=== PATIENT | female | born 1935 | race Caucasian/White ===

== ENCOUNTER 2020-08-24 14:28 | Outpatient (CLI) | payer MEDICARE, SELFPAY ==
--- NOTE | 2020-08-24 14:15 | USCV_ITS ---
Humaira Marquez Age: 84 Gender: F : 1935 Exam Date: 08/24/2020 14:47 Ordering Phys: Nikunj Castro M.D ([email or web address]) Technologist: Mercedes Miller Exam Location: [facility] [place] Indication: short of breath, right carotid bruit Risk Factors: Unknown Previous Vascular Surgery: None Right Brachial BP: / Left Brachial BP: / Right Left Velocity (cm/s) Spectral Plaque Velocity (cm/s) Spectral Plaque Syst/Diast Broadening Syst/Diast Broadening 80.00/ 13.20 Prox CCA 61.70 / 11.10 68.80/ 10.10 Mid CCA 63.70 / 14.80 76.90/ 10.10 Hetro Distal CCA 69.10 / 14.00 283.60/58.80 Oren Prox ICA 65.10 / 18.70 66.10/ 7.50 Mid ICA 75.00 / 18.70 66.70/ 6.30 Distal ICA 93.70 / 30.90 96.30 Oren ECA 79.80 3.55 ICA/CCA 1.36 Antegrade Vertebral Antegrade 76.20/ 14.00 cm/s 68.90/ 15.20 cm/s Tri Subclavian Tri 137.2 99.30 0 FINDINGS Heavy heterogeneous plaques at the right bifurcation and proximal internal carotid artery on the right side. Minimal plaques of the left bifurcation and proximal internal carotid artery. Antegrade flow in the vertebral arteries bilaterally. Normal Doppler flow velocities in the external carotid arteries bilaterally. Near normal Doppler flow velocities in the subclavian arteries bilaterally. CONCLUSIONS Heavy heterogeneous plaques at the right bifurcation and proximal internal carotid artery on the right side with the Doppler features, consistent with greater than 70% stenosis. Minimal plaques at the left bifurcation and proximal internal carotid artery, suggesting less than 50% stenosis. No similar previous studies are available for comparison Dr Gerhard Morris MD [facility] (Electronically Signed) Final Date: 27 August 2020 14:18 S
== END 2020-08-24 14:29 | disposition home or self-care (01) ==
LOC: RAD 14:33
PROVIDERS: PCP Nurse Practitioner Family; Visit Provider Internal Medicine
DX: R06.02 Shortness of breath (principal); R09.89 Other specified symptoms and signs involving the circulatory and respiratory systems; I65.23 Occlusion and stenosis of bilateral carotid arteries
CPT/HCPCS: 93880

== ENCOUNTER 2021-02-02 13:31 | Outpatient (CLI) | payer MEDICARE, SELFPAY ==
--- NOTE | 2021-02-02 14:00 | CT_ITS ---
WS: [id number] CT ANGIOGRAM CAROTID ARTERIES HISTORY: I65.29 - Occlusion and stenosis of unspecified carotid arteries. TECHNIQUE: CT angiogram is performed of the carotid arteries. During arterial injection imaging is ob tained from the skull base to the aortic arch in 1.25 mm imaging. Coronal and sagittal reformats are submitted, MIP imaging also reviewed. Additional multiplanar reformats of the carotid arteries are sierra bmitted. NASCET criteria utilized. All CT scans at [facility] use at least one of these dose optimization techniques: automated exposure control; mA and/or kV adjustment per patient size (includ es targeted exams where dose is matched to clinical indication); or iterative reconstruction. CONTRAST: Omnipaque 350; 95 mL IV. DLP: 760.44 mGycm COMPARISON: None available. Right carotid: Common carotid artery: Arises normally from the innominate artery. No significant plaque or stenosis. Internal carotid artery: Small amount of plaque in intimal thickening at the carotid bifurcation. The re is a very high-grade stenosis involving the origin of the RIGHT ICA. There is soft tissue plaque a nd calcification. Greater than 70% stenosis. External carotid artery: Patent. Left carotid: Common carotid artery: Arises normally from the aortic arch. No significant stenosis. Internal carotid artery: Small amount of plaque at the carotid bifurcation. No high-grade stenosis. External carotid artery: Patent. Right vertebral artery: Unremarkable. Left vertebral artery: Unremarkable. Arises normally from the left subclavian artery. Subclavian arteries: No stenosis or abnormality identified. Upper thorax: Normal. Thyroid gland: Subcentimeter RIGHT thyroid nodules. The largest measures 7 mm. Osseous structures: C4 anterolisthesis by 3 mm. Skull base: Negative. CT/CT angio neck [id number] IMPRESSION: 1. High-grade stenosis origin RIGHT ICA greater than 70%. 2. No significant stenosis LEFT ICA.
[2021-02-02] MEDS: iohexol 350 mg/mL 100 mL Btl IV (15:16)
[2021-02-02 15:39] LABS: Blood Urea Nitrogen 16 mg/dL (8-23)
== END 2021-02-02 13:32 | disposition home or self-care (01) ==
PROVIDERS: PCP Nurse Practitioner Family; Visit Provider Internal Medicine
DX: I65.21 Occlusion and stenosis of right carotid artery (principal)
CPT/HCPCS: 70498; 82565; 84520; Q9967

== ENCOUNTER 2021-12-01 14:55 | Emergency (ER) | payer MEDICARE, SELFPAY ==
[2021-12-01] VITALS (16 sets, daily range): BP systolic 132–178; BP diastolic 61–90; PULSE 82–98; RESP 12–26; TEMP 36.6–36.8; O2SAT 92–97; BMI 42.9
--- NOTE | 2021-12-01 15:46 | ED_ITS ---
Documented by User: Radha Ramirez MD 12/01/21 22:48 HPI - General Adult General: Chief complaint: General Medical Stated complaint: Ochoa rooney sent for anemia Time Seen by Provider: 12/01/21 15:46 History of Present Illness: Patient is an 86-year-old female with history of hypertension, CAD, hyperlipidemia, CHF who presents emergency room with complaints of abnormal blood work. Patient had routine blood work done recently and was found to have a hemoglobin of 7. Patient was then told to come to the emergency room. Denies any melena/hematochezia. Over the last 2 to 3 weeks, patient admits she has become increasingly more short of breath with exertion. Patient denies any chest pain or short of breath at rest. Patient denies any fever/chills, cough, runny nose sore throat, abdominal complaints, diarrhea, melena/hematochezia. No complaints at this time. Onset:2 weeks ago Duration: ongoing Location:home Severity:moderate Associated symptoms: Reports dyspnea; Deny chest pain, nausea, rash, palpitations or vomiting Review of Systems Const: Denies: fever(s) or chills Eyes: Denies: change in vision ENMT: Denies: mouth pain Card: Reports: dyspnea on exertion; Denies: chest pain or palpitations Resp: Reports: dyspnea; Denies: non-productive cough GI: Denies: abdominal pain, nausea, vomiting or diarrhea : Denies: dysuria Musc: Denies: extremity pain Skin/Breast: Denies: rash or new lesions Neuro: Denies: weakness in extremities Psych: Reports: other (Normal mood) Aayush/Lymph: Denies: easy bruising [facility] ED PFSH: Medical History Pulmonary embolism Family History Mother Hypertension Father CAD (coronary artery disease) Social History Smoking and tobacco status: never smoked Alcohol intake: never Physical Exam Const: COMMON NORMALS: alert HENMT: COMMON NORMALS: atraumatic HEAD & SCALP: atraumatic MOUTH: moist mucous membranes not abnormal Eye: COMMON NORMALS: EOMs intact bilaterally and conjunctivae normal CONJUNCTIVA: Yes conjunctivae normal Neck/C-Spine: COMMON NORMALS: full ROM and supple Resp: COMMON NORMALS: normal respiratory effort and clear to auscultation bilaterally AUSCULTATION: clear to auscultation bilaterally Cardio: COMMON NORMALS: regular rate RATE: regular rate GI: COMMON NORMALS: Soft to palpation and non-tender PALPATION: Yes Soft to palpation OTHER: No focal TTP. NO guarding rebound, guarding, rigidity. No CVA tenderness to percussion. Neg Moffett/Neg McBurney's point tenderness, no suprabupic tenderness to palpation. Extremity: COMMON NORMALS: full ROM Neuro: SENSORIUM/ORIENTATION: Yes alert MOTOR EXAM: No Abnormal motor strength present and Other motor observations present (no focal motor deficits) Psych: COMMON NORMALS: speech normal SPEECH: Yes normal speech MOOD & AFFECT: Yes euthymic mood Course Vital Signs: Vital signs: Vital Signs Temperature 98.2 F 12/01/21 21:24 Pulse Rate 88 12/01/21 23:57 Respiratory Rate 16 12/01/21 23:57 Blood Pressure 178/69 12/01/21 23:57 Pulse Oximetry 95 12/01/21 23:57 Oxygen Delivery Me thod 12/01/21 23:09 MDM - General Adult Medical Decision Making Patient is an 86-year-old female with history of hypertension, CAD, hyperlipidemia, CHF who presents emergency room with complaints of abnormal blood work and hemoglobin of 7. Today patient's hemoglobin 7.0. Creatinine 1.2 similar to baseline. Rectal exam is negative for any signs of Hemoccult positive stool. At the present time, it is unclear what is the source of the patient's anemia. Patient received 2 units of blood transfusion. Troponin x2 with delta less than 5. EKG is non-ischemic. I have given patient follow up with our block and case maker to be seen by our outpatient by Dr. Cowan for an EGD. Patient aware of a call from our block and case maker to schedule for appointment(s) and verbalizes understanding of the importance of following up. Rx iron for anemia Disposition: Discharge. Patient counseled regarding diagnostic impression, treatment plan. Patient given ED strict return precautions to return for continuation, worsening, or development of new symptoms. Instructed to f/u w/ PCP regarding symptoms today. Patient verbalized understanding. Lab Data : 12/01/21 15:40 12/01/21 15:40 Laboratory Results WBC 7.6 10^3/uL (4.0-10.0) 12/01/21 15:40 RBC 3.23 10^6/uL (4.1-5.3) L 12/01/21 15:40 Hgb 7.0 g/dL (11.5-15.3) L 12/01/21 15:40 Hct 25.3 % (37.0-47.0) L 12/01/21 15:40 MCV 78.3 fl (81-99) L 12/01/21 15:40 MCH 21.7 pg (28.0-34.0) L 12/01/21 15:40 MCHC 27.7 g/dL (30.0-36.0) L 12/01/21 15:40 RDW 16.7 % (12.1-15.1) H 12/01/21 15:40 Plt Count 310 10^3/cmm (130-400) 12/01/21 15:40 MPV 10.6 fL (7.4-10.4) H 12/01/21 15:40 Neut % (Auto) 67.2 % 12/01/21 15:40 Lymph % (Auto) 17.3 % 12/01/21 15:40 Anderson % (Auto) 11.9 % 12/01/21 15:40 Eos % (Auto) 2.6 % 12/01/21 15:40 Baso % (Auto) 0.5 % 12/01/21 15:40 Neut # (Auto) 5.09 10^3/uL (1.8-7.7) 12/01/21 15:40 Lymph # (Auto) 1.3 10^3/uL (0.8-4.8) 12/01/21 15:40 Anderson # (Auto) 0.9 10^3/uL (0.2-0.9) 12/01/21 15:40 Eos # (Auto) 0.2 10^3/uL (0.0-0.8) 12/01/21 15:40 Baso # (Auto) 0.0 10^3/uL (0.0-0.1) 12/01/21 15:40 Nucleated RBC % (auto) 0 % 12/01/21 15:40 Nucleated RBCs # 0.0 /100WBC 12/01/21 15:40 Sodium 141 mmol/L (136-145) 12/01/21 15:40 Potassium 4.0 mmol/L (3.5-5.1) 12/01/21 15:40 Chloride 104 mmol/L (98-107) 12/01/21 15:40 Carbon Dioxide 26 mmol/L (22-29) 12/01/21 15:40 Anion Gap 15.0 (5-19) 12/01/21 15:40 BUN 15 mg/dL (8-23) 12/01/21 15:40 Creatinine 1.2 mg/dL (0.5-0.9) H 12/01/21 15:40 GFR Calculation Not Reportable 12/01/21 15:40 Glucose 106 mg/dL (65-115) 12/01/21 15:40 Calculated Osmolality 293 mOsm/kg (285-295) 12/01/21 15:40 Calcium 8.9 mg/dL (8.5-10.5) 12/01/21 15:40 Total Bilirubin 0.5 mg/dL (0.15-1.2) 12/01/21 15:40 AST 13 U/L (0-32) 12/01/21 15:40 ALT 10 U/L (0-33) 12/01/21 15:40 Alkaline Phosphatase 113 U/L (35-105) H 12/01/21 15:40 Troponin T Gen 5 ng/L 14 ng/L (0-10) H 12/01/21 22:25 Total Protein 7.1 g/dL (6.6-8.7) 12/01/21 15:40 Albumin 3.7 g/dL (3.5-5.2) 12/01/21 15:40 Globulin 3.4 g/dL (1.3-4.6) 12/01/21 15:40 Blood Type A Positive 12/01/21 15:40 Rho(D) Type Positive 12/01/21 15:40 Antibody Screen Negative 12/01/21 15:40 Crossmatch See Detail 12/01/21 15:40 Discharge Plan Discharge Patient Disposition: Home Clinical Impression: Anemia Condition: Stable Prescriptions: New ferrous sulfate 325 mg (65 mg iron) tablet 325 mg PO DAILY 20 Days Qty: 20 0RF No Action aspirin [Adult Low Dose Aspirin] 81 mg tablet,delayed release (DR/EC) 81 mg PO DAILY atorvastatin 20 mg tablet 20 mg PO DAILY Qty: 90 3RF furosemide 40 mg tablet 40 mg PO DAILY clopidogrel 75 mg tablet 75 mg PO DAILY potassium chloride 20 mEq tablet,ER particles/crystals 20 meq PO DAILY losartan 25 mg tablet 25 mg PO DAILY metoprolol succinate 25 mg tablet extended release 24 hr 25 mg PO DAILY levothyroxine 50 mcg tablet 50 mcg PO DAILY Vitamin D3 50 mcg (2,000 unit) Tablet 100 mcg PO DAILY lutein 20 mg Tablet 20 mg PO DAILY Rx Instructions: give with meal/snack Women's 50 Plus Multivitamin 400 mcg-500 mg calcium-20 mcg Tablet 1 tab PO DAILY Discharge Orders: Discharge ED (Routine); Ordered 12/01/21 Ordered By: Radha Ramirez Referrals: Geni Chen PA [Primary Care Provider] - Discharge Diet: Advance as tolerated Discharge Activity: Increase activity as tolerated Activity Restrictions/Additional Instructions: Our block and case maker will have you follow-up with Dr. Cowan in the next few days for EGD and colonoscopy. You would be expected to have a phone call with our block and case maker who will put you on the schedule. You can expect a call from us in the next 2-3 days. If you don't hear from us, call us back in the emergency room at [phone]. Please have your blood work repeated in 1 week. Come back to the emergency room any black stool, blood in the stool, or any new external complaints Coding Level of Care Code ED Human Resources Receptionist for Chg Fwd Exam Comprehensive Documented by User: OLIVIA Huynh 12/02/21 00:00 HPI - General Adult General: Chief complaint: General Medical Stated complaint: Ochoa rooney sent for anemia Time Seen by Provider: 12/01/21 15:46 PFSH ED PFSH: Medical History Pulmonary embolism Family History Mother Hypertension Father CAD (coronary artery disease) Social History Smoking and tobacco status: never smoked Alcohol intake: never Course Vital Signs: Vital signs: Vital Signs Temperature 98.2 F 12/01/21 21:24 Pulse Rate 88 12/01/21 23:57 Respiratory Rate 16 12/01/21 23:57 Blood Pressure 178/69 12/01/21 23:57 Pulse Oximetry 95 12/01/21 23:57 Oxygen Delivery Me thod 12/01/21 23:09 MDM - General Adult Lab Data I reviewed the patient's lab results. : 12/01/21 15:40 12/01/21 15:40 Laboratory Results WBC 7.6 10^3/uL (4.0-10.0) 12/01/21 15:40 RBC 3.23 10^6/uL (4.1-5.3) L 12/01/21 15:40 Hgb 7.0 g/dL (11.5-15.3) L 12/01/21 15:40 Hct 25.3 % (37.0-47.0) L 12/01/21 15:40 MCV 78.3 fl (81-99) L 12/01/21 15:40 MCH 21.7 pg (28.0-34.0) L 12/01/21 15:40 MCHC 27.7 g/dL (30.0-36.0) L 12/01/21 15:40 RDW 16.7 % (12.1-15.1) H 12/01/21 15:40 Plt Count 310 10^3/cmm (130-400) 12/01/21 15:40 MPV 10.6 fL (7.4-10.4) H 12/01/21 15:40 Neut % (Auto) 67.2 % 12/01/21 15:40 Lymph % (Auto) 17.3 % 12/01/21 15:40 Anderson % (Auto) 11.9 % 12/01/21 15:40 Eos % (Auto) 2.6 % 12/01/21 15:40 Baso % (Auto) 0.5 % 12/01/21 15:40 Neut # (Auto) 5.09 10^3/uL (1.8-7.7) 12/01/21 15:40 Lymph # (Auto) 1.3 10^3/uL (0.8-4.8) 12/01/21 15:40 Anderson # (Auto) 0.9 10^3/uL (0.2-0.9) 12/01/21 15:40 Eos # (Auto) 0.2 10^3/uL (0.0-0.8) 12/01/21 15:40 Baso # (Auto) 0.0 10^3/uL (0.0-0.1) 12/01/21 15:40 Nucleated RBC % (auto) 0 % 12/01/21 15:40 Nucleated RBCs # 0.0 /100WBC 12/01/21 15:40 Sodium 141 mmol/L (136-145) 12/01/21 15:40 Potassium 4.0 mmol/L (3.5-5.1) 12/01/21 15:40 Chloride 104 mmol/L (98-107) 12/01/21 15:40 Carbon Dioxide 26 mmol/L (22-29) 12/01/21 15:40 Anion Gap 15.0 (5-19) 12/01/21 15:40 BUN 15 mg/dL (8-23) 12/01/21 15:40 Creatinine 1.2 mg/dL (0.5-0.9) H 12/01/21 15:40 GFR Calculation Not Reportable 12/01/21 15:40 Glucose 106 mg/dL (65-115) 12/01/21 15:40 Calculated Osmolality 293 mOsm/kg (285-295) 12/01/21 15:40 Calcium 8.9 mg/dL (8.5-10.5) 12/01/21 15:40 Total Bilirubin 0.5 mg/dL (0.15-1.2) 12/01/21 15:40 AST 13 U/L (0-32) 12/01/21 15:40 ALT 10 U/L (0-33) 12/01/21 15:40 Alkaline Phosphatase 113 U/L (35-105) H 12/01/21 15:40 Troponin T Gen 5 ng/L 14 ng/L (0-10) H 12/01/21 22:25 Total Protein 7.1 g/dL (6.6-8.7) 12/01/21 15:40 Albumin 3.7 g/dL (3.5-5.2) 12/01/21 15:40 Globulin 3.4 g/dL (1.3-4.6) 12/01/21 15:40 Blood Type A Positive 12/01/21 15:40 Rho(D) Type Positive 12/01/21 15:40 Antibody Screen Negative 12/01/21 15:40 Crossmatch See Detail 12/01/21 15:40 Discharge Plan Discharge Patient Disposition: Home Clinical Impression: Anemia Condition: Stable Prescriptions: New ferrous sulfate 325 mg (65 mg iron) tablet 325 mg PO DAILY 20 Days Qty: 20 0RF No Action aspirin [Adult Low Dose Aspirin] 81 mg tablet,delayed release (DR/EC) 81 mg PO DAILY atorvastatin 20 mg tablet 20 mg PO DAILY Qty: 90 3RF furosemide 40 mg tablet 40 mg PO DAILY clopidogrel 75 mg tablet 75 mg PO DAILY potassium chloride 20 mEq tablet,ER particles/crystals 20 meq PO DAILY losartan 25 mg tablet 25 mg PO DAILY metoprolol succinate 25 mg tablet extended release 24 hr 25 mg PO DAILY levothyroxine 50 mcg tablet 50 mcg PO DAILY Vitamin D3 50 mcg (2,000 unit) Tablet 100 mcg PO DAILY lutein 20 mg Tablet 20 mg PO DAILY Rx Instructions: give with meal/snack Women's 50 Plus Multivitamin 400 mcg-500 mg calcium-20 mcg Tablet 1 tab PO DAILY Discharge Orders: Discharge ED (Routine); Ordered 12/01/21 Ordered By: Radha Ramirez Referrals: Geni Chen PA [Primary Care Provider] - Discharge Diet: Advance as tolerated Discharge Activity: Increase activity as tolerated Activity Restrictions/Additional Instructions: Our block and case maker will have you follow-up with Dr. Cowan in the next few days for EGD and colonoscopy. You would be expected to have a phone call with our block and case maker who will put you on the schedule. You can expect a call from us in the next 2-3 days. If you don't hear from us, call us back in the emergency room at [phone]. Please have your blood work repeated in 1 week. Come back to the emergency room any black stool, blood in the stool, or any new external complaints Coding Level of Care Code ED Human Resources Receptionist for Chg Fwd Exam Comprehensive
[2021-12-01 15:54] LABS: Basophils % 0.5 %; Eosinophils # 0.2 10^3/uL (0.0-0.8); Eosinophils % 2.6 %; Hematocrit 25.3 % (37.0-47.0); Lymphocytes # 1.3 10^3/uL (0.8-4.8); Lymphocytes % 17.3 %; Mean Corpuscular HGB Conc 27.7 g/dL (30.0-36.0); Mean Corpuscular Hemoglobin 21.7 pg (28.0-34.0); Mean Corpuscular Volume 78.3 fl (81-99); Mean Platelet Volume 10.6 fL (7.4-10.4); Monocytes # 0.9 10^3/uL (0.2-0.9); Monocytes % 11.9 %; Neutrophils # 5.09 10^3/uL (1.8-7.7); Neutrophils % 67.2 %; Nucleated Red Blood Cells % 0 %; Platelet Count 310 10^3/cmm (130-400); Red Blood Count 3.23 10^6/uL (4.1-5.3); Red Cell Distribution Width 16.7 % (12.1-15.1); White Blood Count 7.6 10^3/uL (4.0-10.0)
[2021-12-01 16:36] LABS: Alanine Aminotransferase 10 U/L (0-33); Albumin Level 3.7 g/dL (3.5-5.2); Alkaline Phosphatase 113 U/L (35-105); Aspartate Amino Transferase 13 U/L (0-32); Blood Urea Nitrogen 15 mg/dL (8-23); Calcium 8.9 mg/dL (8.5-10.5); Carbon Dioxide 26 mmol/L (22-29); Chloride 104 mmol/L (98-107); Globulin 3.4 g/dL (1.3-4.6); Glucose 106 mg/dL (65-115); Osmolality Calculated 293 mOsm/kg (285-295); Sodium 141 mmol/L (136-145); Total Bilirubin 0.5 mg/dL (0.15-1.2); Total Protein 7.1 g/dL (6.6-8.7)
[2021-12-01] MEDS: sodium chloride 0.9% 100 mL Bag 50 ML IV (18:23)
--- NOTE | 2021-12-01 20:15 | ECG_ITS ---
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 Measurements Intervals [place] Rate: 94 P: 70 KS: 148 QRS: 53 QRSD: 78 T: 29 QT: 366 QTc: 458 Interpretive Statements SINUS RHYTHM WITH OCCASIONAL SUPRAVENTRICULAR PREMATURE COMPLEXES Compared to ECG 04/21/2018 04:41:51 Myocardial infarct finding no longer present Electronically Signed On 12-02-2021 10:32:26 CDT by Nikunj Castro M.D. [id number]
[2021-12-01 20:48] LABS: Troponin T (5th) Once 14 ng/L (0-10)
--- NOTE | 2021-12-01 23:10 | PC.NURSE ---
Patient here for blood infusion after low hgb at doctor's office, patient was given 1 full unit of PRBC's then 2nd unit was stopped per verbal order from Dr. Ramirez. Patient appears to have tolerated the transfusion well, VS have remained stable. Currently waiting results of troponin.
[2021-12-01 23:39] LABS: Troponin T (5th) Once 14 ng/L (0-10)
== END 2021-12-01 23:58 | disposition home or self-care (01) ==
PROVIDERS: Emergency Medicine; Emergency Provider Physician Assistant; PCP Physician Assistant
DX: D64.9 Anemia, unspecified (principal); I11.0 Hypertensive heart disease with heart failure; I50.9 Heart failure, unspecified; E78.5 Hyperlipidemia, unspecified; I25.10 Atherosclerotic heart disease of native coronary artery without angina pectoris; Z79.82 Long term (current) use of aspirin
CPT/HCPCS: 36430; 80053; 84484; 85025; 86850; 86900; 86920; 93005; 99285; P9016

== ENCOUNTER 2022-07-26 01:02 | Observation (INO) | payer MEDICARE, SELFPAY ==
[2022-07-26] VITALS (12 sets, daily range): BP systolic 135–183; BP diastolic 71–91; PULSE 74–81; RESP 16–22; TEMP 36.2–37.1; O2SAT 93–98; BMI 41.5
--- NOTE | 2022-07-26 01:19 | XRR_ITS ---
PROCEDURE INFORMATION: Exam: XR Chest Exam date and time: 07/26/2022 1:51 AM Age: 86 years old Clinical indication: Other: Poss CVA; Patient HX: Severe dizziness with n/v. ; Additional info: Weakness TECHNIQUE: Imaging protocol: Radiologic exam of the chest. Views: 1 view. COMPARISON: CR XR chest 1V [id number] 04/21/2018 2:06 AM FINDINGS: Lungs: The lungs are somewhat hyperinflated with increased interstitial markings, likely representing COPD. Streaky bibasilar atelectasis. Pneumonia should be excluded clinically. Pleural spaces: Unremarkable. No pleural effusion. No pneumothorax. Heart/Mediastinum: Stable cardiomediastinal silhouette. Bones/joints: Unremarkable. XR/XR chest 1V portable [id number] IMPRESSION: Streaky bibasilar atelectasis. Pneumonia should be excluded clinically. COPD changes.
--- NOTE | 2022-07-26 01:19 | CTR_ITS ---
PROCEDURE INFORMATION: Exam: CT Head Without Contrast Exam date and time: 07/26/2022 1:26 AM Age: 86 years old Clinical indication: Stroke-like symptoms; Dizziness/giddiness; Additional info: Severe dizziness with n/v. TECHNIQUE: Imaging protocol: Computed tomography of the head without contrast. Radiation optimization: All CT scans at this facility use at least one of these dose optimization techniques: automated exposure control; mA and/or kV adjustment per patient size (includes targeted exams where dose is matched to clinical indication); or iterative reconstruction. Other technique: STROKE PROTOCOL was implemented. REPORTING DATA: Count of CT and Cardiac NM exams in prior 12 months: This patient has received 0 known CTs and 0 known cardiac nuclear medicine studies in the 12 months prior to the current study. COMPARISON: CT angio neck [id number] 02/02/2021 2:59 PM RADIATION DOSE METRICS: Total DLP (mGy-cm): 850.28 FINDINGS: Brain: There is physiologic calcification in the bilateral basal ganglia and dentate nuclei. There is mild cortical atrophy. Low-density changes in the white matter are consistent with nonspecific small vessel chronic ischemic change. There is no intracranial mass, hemorrhage or edema. Cerebral ventricles: No ventriculomegaly. Paranasal sinuses: Visualized sinuses are unremarkable. No fluid levels. Mastoid air cells: Visualized mastoid air cells are well aerated. Bones/joints: Unremarkable. No acute fracture. Soft tissues: Unremarkable. CT/CT head wo con* [id number] IMPRESSION: No acute intracranial finding. ASSESSMENT: ASPECTS ([place] Stroke Program Early CT Score) is 10.
--- NOTE | 2022-07-26 01:20 | W.ED.DIZZY ---
HPI - Dizziness General: Chief Complaint: Dizziness Stated Complaint: Dizzy\N\V Time Seen by Provider: 07/26/22 01:04 Source: patient Mode of arrival: ambulatory Limitations: no limitations History of Present Illness: HPI Narrative: 86-year-old female who states at 11 PM tonight she started having some dizziness. She states it is much worse with movement and with trying to ambulate she is having a very hard time ambulating states she has had nausea and vomiting with movement. Some slight improvement at rest states still has some slight dizziness at rest denies any chest pain denies any fevers. Associated symptoms: Reports nausea and vomiting; Denies chest pain, chills or headache(s) Review of Systems Const: Denies: fever(s) or chills Eyes: Denies: blurry vision or eye discomfort ENMT: Denies: throat pain or dental pain Card: Denies: chest pain Resp: Denies: dyspnea GI: Reports: nausea and vomiting; Denies: abdominal pain or diarrhea Musc: Denies: neck pain or back pain Skin/Breast: Denies: rash Neuro: Reports: dizziness; Denies: headache(s) PFSH ED PFSH: Medical History Pulmonary embolism Family History Mother Hypertension Father CAD (coronary artery disease) Social History Smoking and tobacco status: never smoked Alcohol intake: never Substance/Drug Use: never Physical Exam Const: COMMON NORMALS: patient oriented x3 HENMT: COMMON NORMALS: normocephalic and atraumatic HEAD & SCALP: normocephalic and atraumatic Eye: COMMON NORMALS: Equal, round and reactive pupils present and EOMs intact bilaterally PUPIL: Yes Equal, round and reactive pupils present Neck/C-Spine: COMMON NORMALS: full ROM and supple Chest: COMMONS NORMALS: normal inspection of the chest and normal palpation of entire chest wall Resp: COMMON NORMALS: normal respiratory effort, No retractions, No use of accessory muscles and clear to auscultation bilaterally AUSCULTATION: clear to auscultation bilaterally Cardio: COMMON NORMALS: regular rate, regular rhythm and No murmurs present (Cardio) RATE: regular rate RHYTHM: regular rhythm GI: COMMON NORMALS: Normal to inspection, nondistended, normoactive bowel sounds present, Soft to palpation, non-tender and no masses PALPATION: Yes Soft to palpation Extremity: COMMON NORMALS: normal to inspection and full ROM Neuro: COMMON NORMALS: patient oriented x3, moves all extremities and no focal motor deficits CRANIAL NERVES: Yes CN normal except as noted SPEECH: speech normal GAIT: Yes Ataxic gait present MOTOR EXAM: 5/5 motor strength present throughout Psych: COMMON NORMALS: mental status grossly normal, Normal thought process present and cooperative THOUGHT PROCESS: Normal thought process present Skin: COMMON NORMALS: no rashes or lesions noted and no wounds GENERAL SKIN EXAM: no rashes or lesions noted Course Vital Signs: Vital signs: Vital Signs Temperature 97.2 F L 07/26/22 01:10 Pulse Rate 78 07/26/22 01:53 Respiratory Rate 20 H 07/26/22 01:53 Blood Pressure 169/75 07/26/22 01:53 Pulse Oximetry 97 07/26/22 01:53 Oxygen Delivery Me thod Room Air 07/26/22 01:53 MDM - Dizziness Medical Decision Making Patient presents here with dizziness along with some vomiting. Her symptoms have improved here with Antivert this is likely a peripheral cause of vertigo she was seen by the neurologist Dr. Vega as well he does not recommend tPA at this time CTA showed no acute findings either he did recommend admission for observation we will admit her at this time. Lab Data 07/26/22 01:15 07/26/22 01:[address] 07/26/22 01:19 IMPRESSION: No acute intracranial finding. ASSESSMENT: ASPECTS ([place] Stroke Program Early CT Score) is 10. Head/Neck CTA 07/26/22 01:22 IMPRESSION: There is no intracranial large vessel occlusion. IMPRESSION: 1. Patent stent in the right common and internal carotid artery. 2. No evidence of significant stenosis or occlusion in the carotid or vertebral arteries on either side of the neck. REFERENCES: NASCET CRITERIA. The degree of stenosis in the cervical segment of the internal carotid artery is based on NASCET criteria. Normal is no stenosis. Mild is less than 50% stenosis. Moderate is 50-69% stenosis. Severe is 70% to 99% stenosis. Total occlusion is no detectable patent lumen. Laboratory Results WBC 8.8 10^3/uL (4.0-10.0) 07/26/22 01:15 RBC 4.73 10^6/uL (4.1-5.3) 07/26/22 01:15 Hgb 11.5 g/dL (11.5-15.3) 07/26/22 01:15 Hct 40.4 % (37.0-47.0) 07/26/22 01:15 MCV 85.4 fl (81-99) 07/26/22 01:15 MCH 24.3 pg (28.0-34.0) L 07/26/22 01:15 MCHC 28.5 g/dL (30.0-36.0) L 07/26/22 01:15 RDW 15.4 % (12.1-15.1) H 07/26/22 01:15 Plt Count 240 10^3/cmm (130-400) 07/26/22 01:15 MPV 11.0 fL (7.4-10.4) H 07/26/22 01:15 Neut % (Auto) 72.2 % 07/26/22 01:15 Lymph % (Auto) 16.5 % 07/26/22 01:15 [place] % (Auto) 8.8 % 07/26/22 01:15 Eos % (Auto) 1.6 % 07/26/22 01:15 Baso % (Auto) 0.7 % 07/26/22 01:15 Neut # (Auto) 6.36 10^3/uL (1.8-7.7) 07/26/22 01:15 Lymph # (Auto) 1.5 10^3/uL (0.8-4.8) 07/26/22 01:15 [place] # (Auto) 0.8 10^3/uL (0.2-0.9) 07/26/22 01:15 Eos # (Auto) 0.1 10^3/uL (0.0-0.8) 07/26/22 01:15 Baso # (Auto) 0.1 10^3/uL (0.0-0.1) 07/26/22 01:15 Nucleated RBC % (auto) 0 % 07/26/22 01:15 Nucleated RBCs # 0.0 /100WBC 07/26/22 01:15 PT 14.00 SECONDS (12.1-14.9) 07/26/22 01:49 INR 1.05 (0.8-1.2) 07/26/22 01:49 Sodium 136 mmol/L (136-145) 07/26/22 01:15 Potassium 4.5 mmol/L (3.5-5.1) 07/26/22 01:15 Chloride 101 mmol/L (98-107) 07/26/22 01:15 Carbon Dioxide 21 mmol/L (22-29) L 07/26/22 01:15 Anion Gap 18.5 (5-19) 07/26/22 01:15 BUN 24 mg/dL (8-23) H 07/26/22 01:15 Creatinine 1.6 mg/dL (0.5-0.9) H 07/26/22 01:15 GFR Calculation Not Reportable 07/26/22 01:15 Glucose 120 mg/dL (65-115) H 07/26/22 01:15 Calculated Osmolality 287 mOsm/kg (285-295) 07/26/22 01:15 Calcium 9.2 mg/dL (8.5-10.5) 07/26/22 01:15 Total Bilirubin 0.4 mg/dL (0.15-1.2) 07/26/22 01:15 AST 17 U/L (0-32) 07/26/22 01:15 ALT 11 U/L (0-33) 07/26/22 01:15 Alkaline Phosphatase 98 U/L (35-105) 07/26/22 01:15 Troponin T Baseline 16 ng/L (0-10) H 07/26/22 01:15 Total Protein 7.7 g/dL (6.6-8.7) 07/26/22 01:15 Albumin 3.8 g/dL (3.5-5.2) 07/26/22 01:15 Globulin 3.9 g/dL (1.3-4.6) 07/26/22 01:15 EKG Data EKG 1: I personally reviewed and interpreted this EKG as follows: EKG interpretation date: 07/26/22 EKG interpretation time: 01:47 Interpretation: nsr hr [address] or t wave abnormalities qrs 81 qtc 426 Discharge Plan Discharge Patient Disposition: Admitted As Inpatient Clinical Impression: Vertigo Condition: Stable Coding Level of Care Code ED Administrative Office Manager for Oli Perales NIH stroke score NIHSS Level Of Consciousness - 1a: 0 Level Of Consciousness Questions - 1b: Both Correct Level Of Consciousness Commands - 1c: Both Correct Best Gaze - 2: Normal Visual Demarco - 3: No Visual Loss Facial Palsy - 4: Normal Motor Arm Right - 5: No Drift Motor Arm Left - 5: No Drift Motor Leg Right - 6: No Drift Motor Leg Left - 6: No Drift Limb Ataxia - 7: Absent Sensory - 8: Normal Best Language - 9: No Aphasia Dysarthia - 10: Normal Extinction And Inattention - 11: 0 Score Total Score: 0
--- NOTE | 2022-07-26 01:22 | CTR_ITS ---
PROCEDURE INFORMATION: Exam: CTA Head With Contrast, Arteriography Exam date and time: 07/26/2022 1:33 AM Age: 86 years old Clinical indication: Stroke-like symptoms; Dizziness/giddiness; Additional info: Severe dizziness with n/v. TECHNIQUE: Imaging protocol: Computed tomographic angiography of the head with contrast. Exam focused on the arteries. 3D rendering (Not supervised by radiologist): MIP and/or 3D reconstructed images were created by the technologist. Radiation optimization: All CT scans at this facility use at least one of these dose optimization techniques: automated exposure control; mA and/or kV adjustment per patient size (includes targeted exams where dose is matched to clinical indication); or iterative reconstruction. Contrast material: OMNI 350; Contrast volume: 97 ml; Contrast route: INTRAVENOUS (IV); REPORTING DATA: Count of CT and Cardiac NM exams in prior 12 months: This patient has received 0 known CTs and 0 known cardiac nuclear medicine studies in the 12 months prior to the current study. COMPARISON: CT head wo con* [id number] 07/26/2022 1:26 AM RADIATION DOSE METRICS: Total DLP (mGy-cm): 478.64 FINDINGS: ANTERIOR CIRCULATION: Right internal carotid artery: There is some atherosclerotic calcification of the right cavernous carotid artery without significant stenosis. Right middle cerebral artery: No occlusion or significant stenosis. No aneurysm. Right anterior cerebral artery: Right A1 anterior cerebral artery segment is small probably on a congenital basis. The right anterior cerebral artery is supplied via the anterior communicating artery. Left internal carotid artery: There is atherosclerotic calcification of the left cavernous internal carotid artery without stenosis. Left middle cerebral artery: There is some mild atherosclerotic change and stenosis in the origin of the left middle cerebral artery. Left anterior cerebral artery: No occlusion or significant stenosis. No aneurysm. POSTERIOR CIRCULATION: Right vertebral artery: No occlusion or significant stenosis. No aneurysm. Left vertebral artery: No occlusion or significant stenosis. No aneurysm. Basilar artery: No occlusion or significant stenosis. No aneurysm. Right posterior cerebral artery: No occlusion or significant stenosis. No aneurysm. Left posterior cerebral artery: No occlusion or significant stenosis. No aneurysm. Brain: No definite mass, mass effect, or midline shift. Cerebral ventricles: No ventriculomegaly. Bones/joints: Unremarkable. No acute fracture. Soft tissues: Unremarkable. PROCEDURE INFORMATION: Exam: CTA Neck With Contrast Exam date and time: 07/26/2022 1:33 AM Age: 86 years old Clinical indication: Stroke-like symptoms; Dizziness/giddiness; Additional info: Severe dizziness with n/v. TECHNIQUE: Imaging protocol: Computed tomographic angiography of the neck with contrast. 3D rendering (Not supervised by radiologist): MIP and/or 3D reconstructed images were created by the technologist. Radiation optimization: All CT scans at this facility use at least one of these dose optimization techniques: automated exposure control; mA and/or kV adjustment per patient size (includes targeted exams where dose is matched to clinical indication); or iterative reconstruction. Contrast material: OMNI 350; Contrast volume: 97 ml; Contrast route: INTRAVENOUS (IV); REPORTING DATA: Count of CT and Cardiac NM exams in prior 12 months: This patient has received 0 known CTs and 0 known cardiac nuclear medicine studies in the 12 months prior to the current study. COMPARISON: CT angio neck [id number] 02/02/2021 2:59 PM RADIATION DOSE METRICS: Total DLP (mGy-cm): 478.64 FINDINGS: Right common carotid artery: No stenosis. No dissection or occlusion. Right internal carotid artery: There is a stent in the right common carotid artery extending into the right internal carotid artery. This is widely patent. Right external carotid artery: No occlusion or stenosis of the origin. Left common carotid artery: There is some atherosclerotic plaque in the distal left common carotid artery with only mild stenosis. Left internal carotid artery: There is some atherosclerotic calcification of the proximal left internal carotid artery without stenosis as measured according to the NASCET criteria. Left external carotid artery: No occlusion or stenosis of the origin. Right vertebral artery: No stenosis. No dissection or occlusion. Left vertebral artery: No stenosis. No dissection or occlusion. Soft tissues: Normal. No significant soft tissue swelling. Bones/joints: No acute fracture. CT/CT angio headneck* [id number] IMPRESSION: There is no intracranial large vessel occlusion. IMPRESSION: 1. Patent stent in the right common and internal carotid artery. 2. No evidence of significant stenosis or occlusion in the carotid or vertebral arteries on either side of the neck. REFERENCES: NASCET CRITERIA. The degree of stenosis in the cervical segment of the internal carotid artery is based on NASCET criteria. Normal is no stenosis. Mild is less than 50% stenosis. Moderate is 50-69% stenosis. Severe is 70% to 99% stenosis. Total occlusion is no detectable patent lumen.
[2022-07-26 01:29] LABS: Basophils # 0.1 10^3/uL (0.0-0.1); Basophils % 0.7 %; Eosinophils # 0.1 10^3/uL (0.0-0.8); Eosinophils % 1.6 %; Hematocrit 40.4 % (37.0-47.0); Hemoglobin 11.5 g/dL (11.5-15.3); Lymphocytes # 1.5 10^3/uL (0.8-4.8); Lymphocytes % 16.5 %; Mean Corpuscular HGB Conc 28.5 g/dL (30.0-36.0); Mean Corpuscular Hemoglobin 24.3 pg (28.0-34.0); Mean Corpuscular Volume 85.4 fl (81-99); Monocytes # 0.8 10^3/uL (0.2-0.9); Monocytes % 8.8 %; Neutrophils # 6.36 10^3/uL (1.8-7.7); Neutrophils % 72.2 %; Nucleated Red Blood Cells % 0 %; Platelet Count 240 10^3/cmm (130-400); Red Blood Count 4.73 10^6/uL (4.1-5.3); Red Cell Distribution Width 15.4 % (12.1-15.1); White Blood Count 8.8 10^3/uL (4.0-10.0)
[2022-07-26 01:43] LABS: Alanine Aminotransferase 11 U/L (0-33); Albumin Level 3.8 g/dL (3.5-5.2); Alkaline Phosphatase 98 U/L (35-105); Blood Urea Nitrogen 24 mg/dL (8-23); Calcium 9.2 mg/dL (8.5-10.5); Carbon Dioxide 21 mmol/L (22-29); Chloride 101 mmol/L (98-107); Globulin 3.9 g/dL (1.3-4.6); Glucose 120 mg/dL (65-115); Osmolality Calculated 287 mOsm/kg (285-295); Sodium 136 mmol/L (136-145); Total Bilirubin 0.4 mg/dL (0.15-1.2); Total Protein 7.7 g/dL (6.6-8.7)
[2022-07-26] MEDS: iohexol 350 mg/mL 500 mL Btl (per mL) IV (01:45)
--- NOTE | 2022-07-26 01:47 | ECG_ITS ---
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 Measurements Intervals [place] Rate: 77 P: 74 WI: 171 QRS: 19 QRSD: 81 T: 33 QT: 394 QTc: 447 Interpretive Statements SINUS RHYTHM LOW QRS VOLTAGE IN PRECORDIAL LEADS [QRS DEFLECTION < 1.0 mV IN CHEST LEADS] MODERATE ST DEPRESSION [0.05+ mV ST DEPRESSION] Compared to ECG 12/01/2021 21:17:43 Low QRS voltage now present ST (T wave) deviation now present Electronically Signed On 07-26-2022 11:53:25 CDT by Nikunj Castro M.D. [email or web address]/store/NU/[id number] f
[2022-07-26] MEDS: hyDRALAzine 20 mg/mL INJ 1 mL 10 MG IVP (01:48)
[2022-07-26] MEDS: meclizine 25 mg tablet 50 MG PO (01:48)
[2022-07-26 01:54] LABS: Anion Gap 18.5 (5-19); Potassium 4.5 mmol/L (3.5-5.1)
[2022-07-26 01:55] LABS: Aspartate Amino Transferase 17 U/L (0-32)
[2022-07-26 01:57] LABS: Troponin(5th) Baseline 16 ng/L (0-10)
[2022-07-26 02:04] LABS: INR 1.05 (0.8-1.2)
--- NOTE | 2022-07-26 02:30 | P.CONIM_ITS ---
Providers/Reason For Consult Consulting Physician/Specialty*: Maximiliano Vega MD neurology and epilepsy Reason for Consult*: Assess for posterior circulation stroke in patient with complaints of dizziness Primary Care Provider: Geni Chen History of Present Illness History of Present Illness Humaira Marquez is a 86 year old female with a history of right carotid artery stenosis status post stent placement in 2021, mild atherosclerotic heart disease status post cardiac cath in 2021, and anemia requiring blood transfusion in December 2021. The patient lives alone. According to Ms. Marquez, she always makes herself some mint tea prior to going to bed. She stated she got up and made her [place] and then sat down and suddenly she experienced severe dizziness and felt weird followed by nausea and vomiting. According to the patient, she felt dizzy when she turned her head to to either side but worse when looking to the left or when sitting up or attempting to stand and walk. The patient contacted friends who brought her to the emergency room. In the emergency room bed 15, the patient blood pressure was elevated at 183/91. The patient was prescribed hydralazine for her blood pressure and Antivert pills for dizziness by the attending ER physician. The patient was able to swallow the Antivert pills without any issues while I was at the bedside. Head CT scan and CT angiogram of the head and neck were obtained. Head CT revealed no acute findings and CT angiogram was negative for any stenosis or clots in the p osterior circulation and the right internal carotid artery stent was reported to be in place. There was report of some atherosclerotic disease in the left carotid system but no critical diameter stenosis was seen. On patient neurological examination performed by me at the bedside her NIH score =0. The patient denied any dizziness while lying in bed in a supine position. She did report a sensation that she might feel dizzy when looking to the left initially but after patient received the Antivert and hydralazine and her blood pressure decreased to 169/75, she denied any dizziness when looking to the left or right. Extraocular movements revealed no nystagmus and motor testing was 5/5 and there was no ataxia on wnhyvo-exey-ymqhow or lrtq-cacm-gsfn maneuver while the patient was lying in bed. Plantar responses were flexor bilaterally. Sensory examination revealed no extinction on double sensory stimulation. Pupils were 3 to 4 mm round reactive to light and accommodation and visual doss were full via confrontation. Cranial nerves II through XII were intact. Therefore, patient was not a candidate for tPA and tPA was not administered. Hemoglobin and hematocrit were 11.5 and 40 respectively. BUN and creatinine were 24 and 1.6 respectively. According to the patient she has been scheduled to undergo a EGD test in August 2022. Past medical history: Right internal carotid artery stent placement 2021 Mild atherosclerotic heart disease patient underwent cardiac cath on 2021 Hypertension Hyperlipidemia Anemia requiring blood transfusion in December 2021 History of cataract surgery Drug allergies: Codeine which resulted in nausea Current medications: Plavix 75 mg p.o. every morning with food Aspirin 81 mg p.o. every morning with food Lipitor 20 mg p.o. daily Losartan 25 mg p.o. daily Metoprolol ER 25 mg p.o. daily Synthroid 50 mcg p.o. daily Spironolactone 25 mg p.o. q. Vitamin B12 tablets 100 mcg p.o. daily Advil gelcaps as needed arthritic pain Alert drops (consistent water, citric acid, potassium sorb 8, and sodium benzoate) as needed Habits: None Social history: Patient lives alone Review of Systems General: Reports: 10 or more systems reviewed and unremarkable except in HPI and below GI: Reports: nausea and vomiting Musc: Reports: joint pain Neuro: Reports: dizziness Aayush/Lymph: Reports: other (History of anemia) Medications/Allergies Home Medications Medication Instructions Recorded Confirmed Last Taken Type aspirin 81 mg tablet,delayed 81 mg PO DAILY 12/31/19 12/01/21 12/01/21 History release (Adult Low Dose Aspirin) cholecalciferol (vitamin D3) 50 100 mcg PO DAILY 12/01/21 12/01/21 11/30/21 History mcg (2,000 unit) tablet (Vitamin D3) clopidogrel 75 mg tablet 75 mg PO DAILY 12/01/21 12/01/21 11/30/21 History furosemide 40 mg tablet 40 mg PO DAILY 12/01/21 12/01/21 11/30/21 History levothyroxine 50 mcg tablet 50 mcg PO DAILY 12/01/21 12/01/21 12/01/21 History losartan 25 mg tablet 25 mg PO DAILY 12/01/21 12/01/21 11/30/21 History lutein 20 mg tablet 20 mg PO DAILY 12/01/21 12/01/21 11/30/21 History metoprolol succinate 25 mg 25 mg PO DAILY 12/01/21 12/01/21 11/30/21 History tablet,extended release 24 hr ndyaetgj-hcj-gjyir ac 400 1 tab PO DAILY 12/01/21 12/01/21 11/30/21 History mcg-calcium carb 500 mg-vit K1 20 mcg tablet (Women's 50 Plus Multivitamin) potassium chloride 20 mEq 20 meq PO DAILY 12/01/21 12/01/21 11/30/21 History tablet,extended release(part/cryst) atorvastatin 20 mg tablet 20 mg PO DAILY #90 tabs 01/20/22 Unknown Rx Allergies Allergy/AdvReac Type Severity Reaction Status Date / Time codeine Allergy ADR-Nausea Verified 12/01/21 16:51 PFSH Acute PFSH: Medical History Pulmonary embolism Family History Mother Hypertension Father CAD (coronary artery disease) Social History Smoking and tobacco status: never smoked Alcohol intake: never Substance/Drug Use: never Vitals/I&O/Wt Last Vital Signs Temp 97.2 F L 07/26/22 01:10 Pulse 78 07/26/22 01:53 Resp 20 H 07/26/22 01:53 BP 169/75 07/26/22 01:53 Pulse Ox 97 07/26/22 01:53 O2 Del Method Room Air 07/26/22 01:53 Weight last 48 hrs Weight 220 lb Physical Exam Narrative: NIH score =0 The patient is currently alert she is oriented x3. Her speech is fluent. Head atraumatic. Neck supple without obvious bruits cranial nerves II through XII intact. Patient was able to protrude her tongue and swallow without difficulty. There was no facial weakness. Pupils 3 to 4 mm bilaterally. Pupils equal round and reactive to light and accommodation. Extraocular movements intact. There were no nystagmus. Initially during extraocular testing the patient was complaining of some sensation of feeling dizzy when looking to the left and s omewhat to the right but after receiving the Antivert and hydralazine the symptoms appeared to jimbo. Patient still complaining of some dizziness if she turns her head or if she attempted to sit up or walk when she was tested by the emergency room physician prior to her neurological assessment. Therefore I did not attempt to walk the patient. Visual doss full via confrontation. Motor examination 5/5 bilaterally. Vftmom-taek-rslnfh and kilt-jiwq-jzba maneuver performed while the patient was lying in a supine position revealed no ataxia. Deep tendon reflexes 1-2+ bilaterally. Plantar responses flexor bilaterally. There was no clonus. Sensory examination was intact to touch, pinprick and proprioception. There was no extinction on double sensory stimulation. Throat clear. Lungs clear. Heart regular rhythm and rate. Extremities were negative for clubbing or cyanosis or edema. Data 07/26/22 01:15 07/26/22 01:15 A&P Assessment and plan (1) TIA (transient ischemic attack): (2) Vertigo: Plan Assessment: 1. Clinical history and examination suggestive of probable benign positional vertigo. But the possibility of a posterior circulation TIA cannot be excluded. Currently NIH score =0 [address] head [address] and CT angiogram of the head and neck performed on 07/26/2022 revealed no acute findings No tPA was administered. 2. Right internal carotid artery stent placement 2021, stable on CT angiogram of the head and neck performed on 07/26/2022 3. History of mild coronary atherosclerotic heart disease patient reports undergoing a cardiac cath in 2021 4. Hypothyroidism 5. History of anemia requiring blood transfusion in December 2021, hemoglobin and hematocrit were 11.5 and 40 respectively on 07/26/2022 6. Hypertension 7. Mild renal insufficiency (BUN and creatinine 24 and 1.6 respectively) Plan: 1. Recommend admitting patient to observation to monitor her symptoms 2. Continue Plavix 75 mg p.o. every morning with aspirin 81 mg p.o. every morning with food 3. Patient was instructed to discontinue Advil since nonsteroidal anti- inflammatory medications has been reported to potentially increase risk for cardiac disease and strokes 4. Recommend Physical therapy and Occupational Therapy consults to assess gait and for home exercises for vertigo during this hospitalization since patient lives alone 5. Recommend the patient keep her appointment for GI evaluation scheduled in August 2022 6. The patient was encouraged to keep her appointment with the physician kiet baptisteing her right internal carotid artery stent Consult Attestations Medical Necessity Statement: Code stroke. Neurology consult was obtained to assess patient's complaints of acute onset of dizziness to evaluate for the possibility of posterior circulation Coding Level of Care Code 91209 Diagnoses TIA (transient ischemic attack) G45.9 Vertigo R42 Time Spent (min) 30
[2022-07-26 02:39] LABS: Add Urine Microscopic? NO; Charge for UA Resulting for Rev
[2022-07-26] MEDS: ondansetron 2 mg/ML SDV 2 mL 4 MG IVP (02:39)
[2022-07-26 02:47] LABS: Bilirubin Urine Neg (Negative); Blood Urine Neg (Negative); Glucose Urine UA Norm (Normal); Ketones Urine Negative (Negative); Leukocyte Esterase Urine Negative (Negative); Nitrate Urine Negative (Negative); Protein Urine Neg (Negative); Urine Appearance Clear (CLEAR); Urine Color Colorless (Yellow); Urobilinogen Urine Neg (Negative); pH Urine 7 (5-7)
--- NOTE | 2022-07-26 03:09 | PM.HP ---
Providers/Chief Complaint Admitting Physician: Eliza Peñaloza MD Primary Care Provider: Geni Chen Chief Complaint: Dizzy\N\V History of Present Illness Humaira Marquez is a 86 year old female right internal carotid artery stent placement 2021, mild atherosclerotic heart disease, cardiac cath 2021, hypertension, hyperlipidemia, anemia, history of cataract surgery, pulmonary embolism no longer on anticoagulation presented to the hospital today for an episode of dizziness. She states that she was in the kitchen and made herself mint tea that she drinks every night and she suddenly experienced some dizziness therefore sat down and ended up having some nausea and vomited. She states this did seem worse when she tried to move her head to either side or trying to sit up or attempting to stand and walk. She also experienced feeling hot with some facial flushing when above symptoms occurred. She did not fall or lose consciousness. She states she is never really had this before except 20 years ago when she may have experienced this but at that time she also had diarrhea. She denies being sick lately however states last week she may have eaten out and then had an episode of vomiting. At this time patient denies shortness of breath, chest pain, pain anywhere else and states her nausea is also improved. States she lives alone and can get around without using a walker or cane. She states she has a granddaughter in [place] however she states she is having a lot of family problems and therefore would like to state that she has no family. He does not want anybody contact her at this time. She states she is a full code if required. ED course: On arrival to ER blood pressure 169/75 respiratory 20, pulse 78, temperature 97.2, saturating 97% on room air. Code stroke was called on arrival. NIH score of 0. Patient was given hydralazine for her blood pressure 193/91. She was also given Antivert tablets. CT head negative for acute intracranial finding. Head and neck CTA done which showed no intracranial large vessel occlusion. Patent stented right common and internal carotid artery. No evidence of significant stenosis or occlusion in carotid or vertebral arteries on either side of neck. On-call neurologist was notified who saw patient in person at bedside. tPA was not recommended at this time since this was deemed to be most likely a peripheral cause of vertigo. Posterior circulation TIA cannot be excluded. Neurology recommended to admit patient to observation to monitor her symptoms. Continue aspirin Plavix. PT OT recommended. Medications/Allergies Home Medications Medication Instructions Recorded Confirmed Last Taken Type aspirin 81 mg tablet,delayed 81 mg PO DAILY 12/31/19 12/01/21 12/01/21 History release (Adult Low Dose Aspirin) cholecalciferol (vitamin D3) 50 100 mcg PO DAILY 12/01/21 12/01/21 11/30/21 History mcg (2,000 unit) tablet (Vitamin D3) clopidogrel 75 mg tablet 75 mg PO DAILY 12/01/21 12/01/21 11/30/21 History furosemide 40 mg tablet 40 mg PO DAILY 12/01/21 12/01/21 11/30/21 History levothyroxine 50 mcg tablet 50 mcg PO DAILY 12/01/21 12/01/21 12/01/21 History losartan 25 mg tablet 25 mg PO DAILY 12/01/21 12/01/21 11/30/21 History lutein 20 mg tablet 20 mg PO DAILY 12/01/21 12/01/21 11/30/21 History metoprolol succinate 25 mg 25 mg PO DAILY 12/01/21 12/01/21 11/30/21 History tablet,extended release 24 hr qyjgdesy-adv-gtgyb ac 400 1 tab PO DAILY 12/01/21 12/01/21 11/30/21 History mcg-calcium carb 500 mg-vit K1 20 mcg tablet (Women's 50 Plus Multivitamin) potassium chloride 20 mEq 20 meq PO DAILY 12/01/21 12/01/21 11/30/21 History tablet,extended release(part/cryst) atorvastatin 20 mg tablet 20 mg PO DAILY #90 tabs 01/20/22 Unknown Rx Allergies Allergy/AdvReac Type Severity Reaction Status Date / Time codeine Allergy ADR-Nausea Verified 12/01/21 16:51 PFSH Acute PFSH: Medical History Pulmonary embolism Family History Mother Hypertension Father CAD (coronary artery disease) Social History Smoking and tobacco status: never smoked Alcohol intake: never Substance/Drug Use: never Vitals/I&O/Wt Last Vital Signs Temp 97.2 F L 07/26/22 01:10 Pulse 76 07/26/22 02:48 Resp 20 H 07/26/22 02:48 BP 163/76 07/26/22 02:48 Pulse Ox 98 07/26/22 02:48 O2 Del Method Room Air 07/26/22 02:36 Weight last 48 hrs Weight 99.79 kg Physical Exam Narrative: General: Alert oriented x3, patient seen sitting up in bed appearing comfortable at this time. States when she moves her head side to side she feels somewhat dizzy. HEENT: Normocephalic, atraumatic, EOMI, breathing comfortably on room air. Cardio: Regular rate rhythm, normal S1-S2, no gross murmurs. Respiratory: Good bilateral air entry, no wheezes no rhonchi appreciated GI: Abdomen soft, bowel sounds + Behavior: Appropriate and cooperative Extremities: 1+ pitting edema bilateral lower extremities up to knees. Chronic venous stasis around left lower extremity present. Neuro: Cranial nerves II to XII intact, strength equal bilateral upper extremity, bilateral lower extremity no gross focal neurological deficits. Does complain of dizziness when moving her head side to side. Data 07/26/22 01:15 07/26/22 01:15 A&P Assessment and plan (1) Vertigo: (2) Carotid artery stenosis: (3) Hypothyroidism: (4) Obesity: (5) Hypertension: Plan #Dizziness most likely due to BPPV, occult arrhythmia not ruled out #Nausea/vomiting #History of carotid artery stenosis status post stent placement #Hypertension #Hyperlipidemia #Hypothyroidism #Chronic kidney disease, baseline creatinine unknown -Check orthostatic vitals ? Placed on normal saline 75 cc/h ? Admit for observation overnight ? Placed on cardiac telemetry ? Neurology consulted in ER. Recommend to continue aspirin, Plavix ? Check PT OT ? Recommend to continue following up with GI in August 2022 and with cardiology as an outpatient. ? Stop NSAIDs ? Neurochecks every 2 hours ? Fall precautions ? Check baseline EKG. Sinus rhythm on monitor noted ? Hold Lasix at this time ? Continue levothyroxine ? Check TSH ? Continue losartan ? Continue Toprol 25 daily ? Check BMP, magnesium in a.m. ? Check vitamin B12 ? Check echo. -Medications need to be reconfirmed with the patient. Full code SCDs, heparin SQ twice daily for DVT prophylaxis Patient states not to contact her family as she has no family and she is going through some family problems. Attestations Medical Necessity Statement*: Admit to observation overnight for management and work-up of dizziness. Coding Level of Care Code G0426 (50 min) TH Encounter Time (min): 50 Patient seen via Telehealth in the acute care setting (hospital or ED location) by agreement and consent of patient or patient communications representative. Telehealth technology used during the visit includes video and audio. This patient encounter is appropriate and reasonable under the circumstances given the patient?s particular presentation at this time. The patient has been advised of the potential risks and limitations of this mode of treatment (including but not limited to the absence of in-person examination at this time) and has agreed to be treated by an off-site physician for this visit. If deemed clinically necessary from this telehealth visit, or if condition or consent for telehealth visit changes, an in-person visit will be arranged. For this encounter, total time for the origination of telehealth care on this date is as shown. Patient provided consent to be seen over audiovisual cart before proceeding with history taking and physical exam in presence of RN. Other Coding Information Focused coding review requested Diagnoses Vertigo R42 Carotid artery stenosis I65.29 Hypothyroidism E03.9 Obesity E66.9 Hypertension I10
--- NOTE | 2022-07-26 03:33 | USCV_ITS ---
Humaira Marquez Age: 86 Gender: F : 1935 Exam Date: 07/26/2022 04:05 Ordering Phys: Eliza Peñaloza MD Technologist: FABY [place] [facility] [place]: BP: 163 / 76 HR: 79 Rhythm: Sinus Technical Quality: Adequate MEASUREMENTS (Male / Female) Normal Values 2D ECHO LV Diastolic Diameter PLAX 4.1 cm 4.2 - 5.9 / 3.9 - 5.3 cm LV Systolic Diameter PLAX 2.4 cm IVS Diastolic Thickness 1.7 cm 0.6 - 1.0 / 0.6 - 0.9 cm IVS Systolic Thickness 2.0 cm LVPW Diastolic Thickness 1.5 cm 0.6 - 1.0 / 0.6 - 0.9 cm LVPW Systolic Thickness 1.8 cm LVOT Diameter 2.0 cm LV Ejection Fraction 2D Teich 74.2 % LV Ejection Fraction MOD 2C 72.2 % LV Ejection Fraction 2C AL 72.4 % LA Diameter 4.4 cm LA Width 6.2 cm LA Height 6.8 cm RA Width 3.4 cm RA Height 5.7 cm Aorta at Sinotubular Diameter 2.5 cm IVC Diameter 2.1 cm M-MODE Aortic Annulus Diameter 2.8 cm LA Ao Ratio MM 1.6 MV E Point Septal Separation 0.3 cm DOPPLER AV Peak Velocity 152.0 cm/s LVOT Peak Velocity 87.0 cm/s AV Area Cont Eq vti 2.2 cm squared AV Area Cont Eq pk 1.8 cm squared MV Peak Velocity 189.0 cm/s MV Area PHT 2.2 cm squared Mitral E to A Ratio 0.9 MV E' Velocity 75.5 cm/s Mitral E to MV E' Ratio 23.4 Mitral E to LV E' Lateral Ratio 25.5 Mitral E to LV E' Septal Ratio 22.0 TR Peak Velocity 292.7 cm/s TR Peak Gradient 34.3 mmHg TV Peak E Velocity 65.0 cm/s Right Atrial Pressure 10.0 mmHg Pulmonary Artery Systolic Pressu 44.3 mmHg PV Peak Velocity 120.0 cm/s RV Acceleration Time 0.1 s RV Ejection Time 0.4 s RV AcT/ET 0.3 FINDINGS Left Ventricle Normal left ventricular size and systolic function, EF 67 %. No regional wall motion abnormalities. Moderate left ventricular hypertrophy. Grade III/IV diastolic dysfunction (restrictive filling pattern), severely elevated filling pressures. Right Ventricle The right ventricle is normal in size and function. Right Atrium The right atrium is normal in size. Left Atrium Moderately increased left atrial size. Mitral Valve Moderate mitral annular calcification. Moderate mitral valve regurgitation. Aortic Valve No gross abnormalities noted Tricuspid Valve Mild to moderate tricuspid valve regurgitation. Pulmonic Valve Structurally normal pulmonic valve. Pericardium Normal pericardium without effusion. Aorta Normal ascending aorta dimension. IVC Normal inferior vena cava. CONCLUSIONS Normal left ventricular size and systolic function, EF 67 %. No regional wall motion abnormalities. Moderate left ventricular hypertrophy. Grade III/IV diastolic dysfunction (restrictive filling pattern), severely elevated filling pressures. Moderately increased left atrial size. Moderate mitral annular calcification. Moderate mitral valve regurgitation. Mild to moderate tricuspid valve regurgitation. Estimated pulmonary artery peak systolic pressure 44 mmHg There is no pericardial effusion. There are no intracardiac masses. No similar previous studies are available for comparison Dr Gerhard Morris MD FACC (Electronically Signed) Final Date: 26 Jul 2022 21:52 S
[2022-07-26 04:23] LABS: Procalcitonin 0.04 ng/mL (0-0.5); Thyroid Stimulating Hormone 3.42 uIU/mL (0.27-4.20); Vitamin B12 594 pg/mL (232-1245)
[2022-07-26] MEDS: sodium chloride 0.9% 1,000 ML 75 ML IV (04:37)
[2022-07-26] MEDS: heparin 5,000 unit/mL INJ 1 mL 5000 UNIT SUBCUT ×2 (04:40→15:09)
[2022-07-26 04:41] LABS: Glucose Point of Care 122 mg/dL (70-110)
[2022-07-26] MEDS: levothyroxine 25 mcg Tablet PO (05:01)
[2022-07-26 07:54] LABS: Troponin 5 6HR 14.34 ng/L (0-10)
[2022-07-26 08:00] LABS: Troponin 5 6HR Delta -1.66 ng/L (0-12)
[2022-07-26] MEDS: aspirin 81 mg EC Tablet PO (08:31)
[2022-07-26] MEDS: clopidogrel 75 mg Tablet PO (08:31)
[2022-07-26] MEDS: losartan 50 mg Tablet 25 MG PO (08:32)
--- NOTE | 2022-07-26 09:10 | ECG_ITS ---
[facility] Test Date: 2022-07-26 Pat Name: Humaira Marquez Department: Room: 255 Gender: Female Instrument Sterilizer: : 1935 Requested By: Yi Ragland Order Number: [id number] Kimani MD: Nikunj Castro M.D. Measurements Intervals [place] Rate: 70 P: 64 IA: 149 QRS: 4 QRSD: 80 T: 30 QT: 422 QTc: 458 Interpretive Statements SINUS RHYTHM WITH OCCASIONAL SUPRAVENTRICULAR PREMATURE COMPLEXES LOW QRS VOLTAGE IN PRECORDIAL LEADS [QRS DEFLECTION < 1.0 mV IN CHEST LEADS] Compared to ECG 07/26/2022 01:47:26 ST (T wave) deviation no longer present Electronically Signed On 07-26-2022 11:54:36 CDT by Nikunj Castro M.D. [id number]
--- NOTE | 2022-07-26 16:46 | P.DS_ITS ---
Discharge Providers Date of Admission: 07/26/22 02:40 Date of Discharge: July 26, 2022 Attending Provider at Admission: Eliza Peñaloza MD Attending Provider at Discharge: Jalen Epstein MD Consults: Neurology Primary Care Provider: Geni Chen Diagnoses at Discharge Discharge Diagnosis (1) Vertigo: Status: Acute (2) Carotid artery stenosis: Status: Acute (3) Hypothyroidism: Status: Acute (4) Obesity: Status: Acute (5) Hypertension: Status: Acute Reason for Visit Reason for Visit: Dizzy\N\V Hospital Course Hospital Course Humaira Marquez is an 86-year-old female with a past medical history significant for hypertension, pulmonary embolism, and hypothyroidism who presented with dizziness, nausea, and emesis. Neurology consulted due to concern for TIA. Head CT imaging as well as head/neck CTA was negative for evidence of acute stroke. Labs revealed acute kidney injury likely secondary to dehydration secondary to nausea and emesis. She was treated with IV fluids. She worked with physical therapy. Dizziness, vertigo, nausea, and emesis resolved. Patient continued on dual antiplatelet therapy and statin therapy at discharge. She is to follow up with her primary care provider carmen one week. Physical Exam Narrative: General: Patient is awake and alert. Conversational. No acute distress. Pleasant. Head: Normocephalic. Atraumatic. EOM intact. Neck: No JVD. Cardiovascular: RRR. Normal peripheral perfusion. Lungs: Non-labored. No accessory muscle use. Speaks in full sentences. No audible wheezing. Skin: No jaundice. No rashes. Abdomen: Not distended. No guarding. Genito Urinary: Genital exam not performed since complaints not related. Rectal: Rectal exam not performed since no symptoms indicated blood loss. Extremities: No cyanosis or clubbing. Musculoskeletal: No swollen or erythematous joints. Neurological: Moves all 4 extremities. No myoclonus. Discharge Data Studies Completed and Pending Completed Studies During Hospitalization Category Date Time Status CT head wo con* [id number] Stat Cat Scan 07/26/22 01:19 Completed CTA head neck [CT angio headneck* [id number]] Stat Cat Scan 07/26/22 01:22 Completed XR chest 1V portable [id number] Stat Exams 07/26/22 01:19 Completed Pending at discharge Category Date Time Status Basic Metabolic Panel AM LABS Lab 07/27/22 04:00 Ordered Magnesium AM LABS Lab 07/27/22 04:00 Ordered US echo complete [CV. echo complete* [id number]] Routine Ultrasound 07/26/22 03:33 Taken Radiology Impressions Chest X-Ray 07/26/22 01:19 IMPRESSION: Streaky bibasilar atelectasis. Pneumonia should be excluded clinically. COPD changes. Head CT 07/26/22 01:19 IMPRESSION: No acute intracranial finding. ASSESSMENT: ASPECTS (Freida Stroke Program Early CT Score) is 10. Head/Neck CTA 07/26/22 01:22 IMPRESSION: There is no intracranial large vessel occlusion. IMPRESSION: 1. Patent stent in the right common and internal carotid artery. 2. No evidence of significant stenosis or occlusion in the carotid or vertebral arteries on either side of the neck. REFERENCES: NASCET CRITERIA. The degree of stenosis in the cervical segment of the internal carotid artery is based on NASCET criteria. Normal is no stenosis. Mild is less than 50% stenosis. Moderate is 50-69% stenosis. Severe is 70% to 99% stenosis. Total occlusion is no detectable patent lumen. Laboratory Results WBC 8.8 10^3/uL (4.0-10.0) 07/26/22 01:15 RBC 4.73 10^6/uL (4.1-5.3) 07/26/22 01:15 Hgb 11.5 g/dL (11.5-15.3) 07/26/22 01:15 Hct 40.4 % (37.0-47.0) 07/26/22 01:15 MCV 85.4 fl (81-99) 07/26/22 01:15 MCH 24.3 pg (28.0-34.0) L 07/26/22 01:15 MCHC 28.5 g/dL (30.0-36.0) L 07/26/22 01:15 RDW 15.4 % (12.1-15.1) H 07/26/22 01:15 Plt Count 240 10^3/cmm (130-400) 07/26/22 01:15 MPV 11.0 fL (7.4-10.4) H 07/26/22 01:15 Neut % (Auto) 72.2 % 07/26/22 01:15 Lymph % (Auto) 16.5 % 07/26/22 01:15 [place] % (Auto) 8.8 % 07/26/22 01:15 Eos % (Auto) 1.6 % 07/26/22 01:15 Baso % (Auto) 0.7 % 07/26/22 01:15 Neut # (Auto) 6.36 10^3/uL (1.8-7.7) 07/26/22 01:15 Lymph # (Auto) 1.5 10^3/uL (0.8-4.8) 07/26/22 01:15 [place] # (Auto) 0.8 10^3/uL (0.2-0.9) 07/26/22 01:15 Eos # (Auto) 0.1 10^3/uL (0.0-0.8) 07/26/22 01:15 Baso # (Auto) 0.1 10^3/uL (0.0-0.1) 07/26/22 01:15 Nucleated RBC % (auto) 0 % 07/26/22 01:15 Nucleated RBCs # 0.0 /100WBC 07/26/22 01:15 PT 14.00 SECONDS (12.1-14.9) 07/26/22 01:49 INR 1.05 (0.8-1.2) 07/26/22 01:49 Sodium 136 mmol/L (136-145) 07/26/22 01:15 Potassium 4.5 mmol/L (3.5-5.1) 07/26/22 01:15 Chloride 101 mmol/L (98-107) 07/26/22 01:15 Carbon Dioxide 21 mmol/L (22-29) L 07/26/22 01:15 Anion Gap 18.5 (5-19) 07/26/22 01:15 BUN 24 mg/dL (8-23) H 07/26/22 01:15 Creatinine 1.6 mg/dL (0.5-0.9) H 07/26/22 01:15 GFR Calculation Not Reportable 07/26/22 01:15 Glucose 120 mg/dL (65-115) H 07/26/22 01:15 POC Glucose 122 mg/dL (70-110) H 07/26/22 01:23 Calculated Osmolality 287 mOsm/kg (285-295) 07/26/22 01:15 Calcium 9.2 mg/dL (8.5-10.5) 07/26/22 01:15 Total Bilirubin 0.4 mg/dL (0.15-1.2) 07/26/22 01:15 AST 17 U/L (0-32) 07/26/22 01:15 ALT 11 U/L (0-33) 07/26/22 01:15 Alkaline Phosphatase 98 U/L (35-105) 07/26/22 01:15 Troponin T Baseline 16 ng/L (0-10) H 07/26/22 01:15 Troponin T 120 Minute 15.10 ng/L (0-10) H 07/26/22 03:32 Delta Troponin T -0.90 ABS# (0-10) L 07/26/22 03:32 Troponin T Hi Sens 6Hr 14.34 ng/L (0-10) H 07/26/22 07:08 Troponin T Hi Sens 6Hr Delta -1.66 ng/L (0-12) L 07/26/22 07:08 Total Protein 7.7 g/dL (6.6-8.7) 07/26/22 01:15 Albumin 3.8 g/dL (3.5-5.2) 07/26/22 01:15 Globulin 3.9 g/dL (1.3-4.6) 07/26/22 01:15 Vitamin B12 594 pg/mL (232-1245) 07/26/22 03:32 Procalcitonin 0.04 ng/mL (0-0.5) 07/26/22 03:32 TSH 3.42 uIU/mL (0.27-4.20) 07/26/22 03:32 Urine Color Colorless (Yellow) 07/26/22 02:31 Urine Appearance Clear (CLEAR) 07/26/22 02:31 Urine pH 7 (5-7) 07/26/22 02:31 Ur Specific [place] 1.010 (1.005-1.030) 07/26/22 02:31 Urine Protein Neg (Negative) 07/26/22 02:31 Urine Glucose (UA) Norm (Normal) 07/26/22 02:31 Urine Ketones Negative (Negative) 07/26/22 02:31 Urine Blood Neg (Negative) 07/26/22 02:31 Urine Nitrate Negative (Negative) 07/26/22 02:31 Urine Bilirubin Neg (Negative) 07/26/22 02:31 Urine Urobilinogen Neg mg/dL (Negative) 07/26/22 02:31 Ur Leukocyte Esterase Negative (Negative) 07/26/22 02:31 Procedures Performed None Vitals Last Vital Signs Temp 98 F 07/26/22 15:53 Pulse 81 07/26/22 15:53 Resp 17 07/26/22 15:53 BP 137/74 07/26/22 15:53 Pulse Ox 94 07/26/22 15:53 O2 Del Method Room Air, Nasal Cannula 07/26/22 15:53 Discharge Plan Discharge Patient Disposition: Home Condition: Stable Prescriptions: Continued aspirin [Adult Low Dose Aspirin] 81 mg tablet,delayed release (DR/EC) 81 mg PO DAILY@10 clopidogrel 75 mg tablet 75 mg PO DAILY@13 losartan 25 mg tablet 25 mg PO DAILY@10 metoprolol succinate 25 mg tablet extended release 24 hr 25 mg PO DAILY@13 levothyroxine 50 mcg tablet 50 mcg PO DAILY@08 lutein 20 mg Tablet 20 mg PO DAILY Rx Instructions: give with meal/snack Women's 50 Plus Multivitamin 400 mcg-500 mg calcium-20 mcg Tablet 1 tab PO DAILY spironolactone 25 mg Tablet 25 mg PO DAILY@10 cyanocobalamin (vitamin B-12) 100 mcg tablet 100 mcg PO DAILY@13 Vitamin D3 25 mcg (1,000 unit) Tablet 75 mcg PO DAILY atorvastatin 20 mg tablet 20 mg PO DAILY@13 Rx Instructions: Must make an appointment and be seen for further refills Discharge Orders: Discharge Order (Routine); Ordered 07/26/22 Ordered By: Jalen Epstein Other Ambulatory Orders: DME: Eduardo (Order) Location: None Selected Ordered By: Jalen Epstein Referrals: Geni Chen PA [Primary Care Provider] - 1-3 days Discharge Diet: Advance as tolerated and Usual diet Discharge Activity: Resume usual activity, Increase activity as tolerated and As per PT/OT instructions Patient Instructions: Opioid Safety Activity Restrictions/Additional Instructions: 1. Increase activity as tolerated. 2. Take medications as prescribed. 3. Follow up with primary care provider. Discharge Attestations Time Spent in Discharge Care*: greater than 30 min Quality Metrics Clinical Quality Measures [ No reported AMI, CVA or VTE this stay] Coding Level of Care Code Acute Code for Chg Fwd Diagnoses Vertigo R42 Carotid artery stenosis I65.29 Hypothyroidism E03.9 Obesity E66.9 Hypertension I10
== END 2022-07-26 18:33 | disposition home or self-care (01) ==
LOC: ER 02:23 → MEDSURG 02:40
PROVIDERS: Admitting Provider Internal Medicine; Emergency Provider Emergency Medicine; PCP Physician Assistant; Visit Provider Internal Medicine
DX: I65.29 Occlusion and stenosis of unspecified carotid artery (principal); R42 Dizziness and giddiness; I12.9 Hypertensive chronic kidney disease with stage 1 through stage 4 chronic kidney disease, or unspecified chronic kidney disease; N18.9 Chronic kidney disease, unspecified; E03.9 Hypothyroidism, unspecified; J44.9 Chronic obstructive pulmonary disease, unspecified; I08.1 Rheumatic disorders of both mitral and tricuspid valves; E78.5 Hyperlipidemia, unspecified; I25.10 Atherosclerotic heart disease of native coronary artery without angina pectoris; E66.9 Obesity, unspecified; Z68.41 Body mass index [BMI] 40.0-44.9, adult; Z79.82 Long term (current) use of aspirin; Z79.899 Other long term (current) drug therapy; Z86.711 Personal history of pulmonary embolism
CPT/HCPCS: 36415; 36416; 70450; 70496; 70498; 71045; 80053; 81003; 82607; 82962; 84145; 84443; 84484; 85025; 85610; 93005; 93306; 96372; 96374; 96375; 97116; 97161; 97165; 99285; G0378; J0360; J1644; J2405; J7030; J8597; Q9967

== ENCOUNTER → 2024-03-17 12:43 | Outpatient (BNVA) | payer MEDICARE, SELFPAY | PROVIDERS: PCP Physician Assistant; Visit Provider Emergency Medicine | DX: J06.9 Acute upper respiratory infection, unspecified (principal) | CPT/HCPCS: 87400; 87426 ==

== ENCOUNTER 2024-07-12 14:04 | Outpatient (CLI) | payer MEDICARE, SELFPAY ==
--- NOTE | 2024-07-12 14:23 | US_ITS ---
WS: [id number] RENAL ULTRASOUND HISTORY: CHRONIC KIDNEY DZ,STAGE 3B COMPARISON: None available. TECHNIQUE: 2-D and color Doppler imaging of the kidney submitted. Right kidney: 9.9 cm x 4.8 cm x 5.6 cm. Cortex: 0.9 cm Normal size kidney with mild cortical thinning. No hydronephrosis. Large cyst from the lower pole is slightly lobulated measures 7.1 x 7.2 x 6.6 cm. No solid component. Left kidney: 8.4 (cm) cm x 3.5 (cm) cm x 3.6 (cm) cm. Cortex: 0.8 cm Low normal size kidney with mild diffuse cortical thinning. No hydronephrosis. Upper pole cyst measures 1.9 x 2.3 x 2.4 cm. Aorta: Normal. Urinary Bladder: Minimally distended. US/US renal BI* [id number] IMPRESSION: 1. Mild bilateral diffuse cortical thinning of each kidney. 2. Bilateral simple renal cysts as described above. 3. No hydronephrosis. 4. Low normal size LEFT kidney.
== END 2024-07-12 14:05 | disposition home or self-care (01) ==
LOC: RAD 14:16
PROVIDERS: PCP Family Medicine; Visit Provider Family Medicine
DX: N18.32 Chronic kidney disease, stage 3b (principal); R93.421 Abnormal radiologic findings on diagnostic imaging of right kidney; R93.422 Abnormal radiologic findings on diagnostic imaging of left kidney; N28.1 Cyst of kidney, acquired
CPT/HCPCS: 76770